=== PATIENT | male | born 1965 | race Caucasian/White ===

== ENCOUNTER 2023-09-06 15:38 | Emergency (ER) | payer BC, OTHER ==
[~2023-09-06] VITALS: Ht 182.9 cm; Wt 75.8 kg
[~2023-09-06 15:38] MED LIST: THYROID PO
[2023-09-06] MEDS ORDERED: CEPH-585 PO (20:33)
[2023-09-06 20:47] VITALS: BP 161/83; PULSE 68; RESP 16; TEMP 98.6; O2SAT 100
== END 2023-09-06 21:07 | disposition home or self-care (01) ==
LOC: ER 15:38
DX: S51.812A Laceration without foreign body of left forearm, initial encounter (principal); X58.XXXA Exposure to other specified factors, initial encounter; Y93.89 Activity, other specified; Y92.89 Other specified places as the place of occurrence of the external cause; Y99.8 Other external cause status
CPT/HCPCS: 12002; 99283; J7030; A6258; A6449